=== PATIENT | male | born 1970 | race Caucasian/White ===

== ENCOUNTER → 2019-05-20 | Outpatient (CLI) | payer OTHER ==
--- NOTE | 2019-05-30 23:05 | SLEEP ---
[address] [address] SLEEP STUDY REPORT Name: LORETTA OLEA Room: [facility]#: [id number] Admission: 05/20/19 Attend Phys: Genevieve Roblero Discharge: Date of : 74 Report #: [id number] THIS REPORT FOR: //name// CC: CLEMENTINA Gómez This study has been reviewed in its entirety by a board certified sleep specialist DATE OF SERVICE: 05/20/2019 HOME SLEEP STUDY The patient is a 49-year-old who weighs 247 pounds with a BMI of 33.5. The patient's Rutland score was 10. The patient underwent home sleep study performed at [facility]. Total recording time was 397 minutes. During the night study, the patient had 234 obstructive apneas, no central or mixed apneas and 172 hypopneas. The patient's apnea hypopnea index was 65 per hour. No supine sleep seen. Nocturnal oximetry study revealed an average oxygen saturation of 91% with a lowest of 76%. 99 minutes were spent in oxygen saturation of less than 90% and 25 minutes with saturation of less than 85%. Mean heart rate was 63 beats per minute. IMPRESSION: 1. Severe sleep apnea-hypopnea syndrome at an AHI of 65 per hour. 2. Nocturnal hypoxia, secondary to obstructive sleep apnea. RECOMMENDATIONS: 1. The patient should return for in-lab CPAP titration study. 2. Once the patient is optimally treated with CPAP, then follow up in 4-6 weeks to assess compliance and to document clinical improvement. 3. Weight loss is advised. 4. Avoid [employer] depressants. 5. Cautioned regarding driving until symptoms of sleep apnea resolve with the use of CPAP. <ELECTRONICALLY SIGNED> By: Yoan Mohamud MD 05/30/19 [id number] Mohamud MD /nt
== END ==
LOC: M.SLEEPLAB 15:30
DX: G47.33 Obstructive sleep apnea (adult) (pediatric) (principal); G47.30 Sleep apnea, unspecified; R09.02 Hypoxemia